=== PATIENT | male | born 1995 | race Caucasian/White ===

== ENCOUNTER 2017-02-13 18:24 | Inpatient (IN) | payer MEDICAID ==
[2017-02-13] MEDS ORDERED: MAGNESIUM HYDROXIDE 2,400 MG/10 ML CUP PO PRN (18:33)
[2017-02-13] MEDS ORDERED: MAG HYDROX/AL HYDROX/SIMETH 30 ML CUP PO PRN (18:33)
[2017-02-13] MEDS ORDERED: LORazepam 0.5 MG TAB PO PRN (19:38)
[2017-02-13] MEDS: NICOTINE 14MG/24HR PATCH TRANSDERM SCH (22:49)
[2017-02-13] MEDS: ACETAMINOPHEN TAB 325 MG TAB PO PRN (23:43)
[2017-02-14] MEDS ORDERED: LORazepam 0.5 MG TAB ONE (02:00)
[2017-02-14] MEDS: ACETAMINOPHEN TAB 325 MG TAB PO PRN (04:46)
[2017-02-14 08:15] VITALS: RESP 16
[2017-02-14] MEDS: NICOTINE 14MG/24HR PATCH TRANSDERM SCH ×2 (09:59→11:55)
[2017-02-14] MEDS ORDERED: HYDROcodone/APAP 5-325MG 1 EACH TAB PO PRN (14:06)
--- NOTE | 2017-02-14 15:18 | HP ---
DATE OF ADMISSION: Patient is known to me as I saw him in consultation liaison. HISTORY OF PRESENT ILLNESS: Patient is 21 -year-old single male who was living with his parents. Patient was brought to the hospital after he overdosed on aspirin and Fioricet and he did cut both of his arms superficially. Patient was petitioned by his mother stating that the patient did attempt suicidal before, as he did cut his wrist and also he overdosed. According also to the petition, patient told her that "God was talking to him and he wants him to be with him." When I talked to the patient today, patient is not as lethargic as before, he stated "when I overdosed and cut myself I was not in the right mind, I was high on mushrooms". Patient was very vague, evasive, kept saying, "I am not insane or crazy and I don't need to be here, and I don't need to be on any psychiatric medication." When I did ask the patient if he has been depressed he said, "I just had been feeling down and sad for the last year since I had my seizure." Patient was very disorganized, talking about unrealistic dream as "One day, I would be famous like any of rapper". He stated that he has been "dealing with stuff". When I did ask him to elaborate more he said, "it does not matter." Patient was very somatic preoccupied, to the point that it seems his delusion thinking, talking about being detached from his body. When I asked him how often he has been using the mushrooms, he said, "this is not drugs. This is God planted for us as a medications". He talked about extensive history of substance abuse, it started last year but he was very vague about his mental illness. He did admit that 18 months ago he attempted suicide and he was in the inpatient in mental unit for 4 weeks, but he said, "They were giving me Abilify that it did make me hallucinate". Despite he denied any auditory or visual hallucination, but patient was responding to internal cues. There was a lot of halting and blocking. He stated that "everything is overwhelming to me since I had my seizure." But despite this statement, he denied feeling hopeless or helpless. He kept saying, "I just need to stop using mushrooms and everything will be okay." Patient seems he has a lot of paranoia and suspicious feeling and idea of reference. He did admit that he has been having trouble sleeping at night. Regarding his past psychiatric history, there is one previous inpatient hospitalization 18 months ago for 4 weeks and he was discharged [facility] but patient did not follow up with outpatient treatment. There are 2 previous suicidal attempts, one he did cut his forearm and overdose 18 months ago and the second one just another overdose 9 months ago. Substance abuse history: According to him, he did try everything over the last year. He used crack cocaine, Adderall, Vicodin pain medication and mushrooms. Marijuana: He stated that he has medical marijuana card for migraine headache for at least 18 months and he has been smoking between 2 and 3 joints a day. MEDICAL HISTORY: 1. Status post overdose. 2. 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 3. History of grand mal seizure since age 16. Patient supposed to be on Depakote, but he stopped 8 months ago. 4. History of migraine headache. 5. History of recent back pain. His home medication he is on: 1. Fioricet for migraine headache. 2. [place] for back pain. SOCIAL HISTORY: Patient was raised by both parents. He has 2 brothers and 2 sisters. He dropped out of school at 11 grade. He has been not able to maintain job more than 6 months. 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 There is no current relationship. He never had been . There is no children. He denied any current legal program. MENTAL STATUS EXAMINATION: Patient came to the office, was wearing hospital gown, alert, oriented to place, and person and time but very guarded and evasive, he appeared to attend to the interview. He has no distinguished features of psychomotor agitation or abnormality. Despite he denied any hallucination, but obvious he is responding to internal cue. He expressed a lot of paranoia and suspicious feeling, mixed delusion, grandiose delusion and ( ) delusion. He stated that he has been feeling sad, but affect is blunted. He denied any current suicidal ideation or homicide ideation. He does minimize what he did prior to the admission, saying, "I wasn't in the right mind because of the mushrooms." His thinking is very concrete with a lot of halting and blocking and his insight and judgment are totally impaired. DIAGNOSES: 1. Bipolar disorder, mixed with psychotic feature. Rule out organic mood disorder bipolar type due to frontal lobe damage. 2. Polysubstance use disorder. 3. Poor compliance with medication. 4. Psychosocial dysfunction due to psychosis. PLAN: The patient has been admitted to the mental health unit on petition and certificate. I will complete clinical certificate. I will start him on Invega if he did agree to take it. Otherwise, we are waiting for the court hearing to order combined inpatient and outpatient treatment and we will changed oral Invega to Invega injection after the court hearing to assure the compliance with treatment. We will request a routine medical consultation. loft worker apprentice will meet with his parents to complete psychosocial assessment and discuss discharge planning. Patient will be monitored on daily basis for safety and will encourage him to participate in group.
[2017-02-14] MEDS: PALIPERIDONE 6 MG TAB.ER.24 PO SCH (20:45)
[2017-02-15] MEDS: NICOTINE 14MG/24HR PATCH TRANSDERM SCH (09:36)
--- NOTE | 2017-02-15 12:13 | CONS ---
DATE OF CONSULTATION: 02/14/2017 REASON FOR CONSULTATION: Medical management of drug overdose with salicylate and acetaminophen. HISTORY OF PRESENT ILLNESS: Mr. Salamanca is a 21-year-old male with a known history of seizure disorder, migraine headaches and history of brain abscess at age of 16 years. He was initially brought to the ER after he voluntarily took ( ) tablets of aspirin and Fioricet pills. The patient threw up 30 to 40 pills according to EMS. Otherwise the patient was found to have elevated acetaminophen level and salicylate level and anion gap metabolic acidosis. The patient was continued on IV fluids. The patient was treated with acetylcysteine as per toxicology recommendations. Patient's salicylate levels came down to less than 10. The patient was also UDS positive for barbiturates and marijuana. The patient was eventually transferred to inpatient psychiatric unit for his depression and suicide attempt. Currently patient denies any complaints of chest pain or shortness of breath. The patient states that he is feeling ( ). Otherwise denied any nausea or vomiting, abdominal pain. No fever. No chills. REVIEW OF SYSTEMS: CONSTITUTIONAL: No fever. No chills. RESPIRATORY: No cough or sputum production. CARDIOVASCULAR: No chest pain or shortness of breath. ABDOMEN: No nausea, vomiting, abdominal pin. GENITOURINARY: Negative. ENDOCRINE: Negative. PSYCHIATRIC: Negative. All other 14 point review of systems negative as above. PAST MEDICAL HISTORY: Seizure disorder, history of brain abscess at age 16 with frontal lobe damage, migraine headaches, history of suicide attempt. PAST SURGICAL HISTORY: Metal plate in arms after skateboard accident. PSYCHOSOCIAL HISTORY: Depression and previous suicide attempt. SOCIAL HISTORY: Started smoking at age 11, light smoker. Dose use marijuana occasionally. FAMILY HISTORY: Father had HIV and renal disease on hemodialysis. Mother had TB and HIV as per patient. Home medications: 1. Adderall. 2. [place]. ALLERGIES: No known drug allergies. PHYSICAL EXAMINATION: A 21-year-old male lying in bed comfortably, alert, oriented x3, appears to be in no apparent distress. VITALS: Blood pressure is 130/70, pulse is 78, respirations 16, temperature afebrile, pulse ox 98% on room air. HEENT: Atraumatic, normocephalic. NECK: Supple. No JVD. CVS exam: S1, S2 heard. No murmurs, no gallop, no rub. LUNGS: Bilateral air entry is present. No crackles. ABDOMEN: Soft, nontender. Bowel sounds are present: PIT INSPECTOR: Awake, alert, oriented x3. No focal deficit. EXTREMITIES: No edema. Pulses palpable bilaterally. No clubbing or cyanosis. PSYCHIATRIC: Cooperative. Denied any suicidal ideation now. Laboratory data reviewed. IMPRESSION: 1. Acute drug overdose with aspirin and Fioricet. 2. Acute suicide attempt. 3. Elevated salicylate and acetaminophen levels, normalized now. 4. Hypokalemia, improved. 5. Metabolic acidosis, resolved. 6. History of depression and suicide attempt. 7. Migraine headaches. 8. Seizure disorder. 9. Poor compliance with medications. 10. Bipolar disorder with mixes psychotic features. DISCUSSION AND PLAN: Patient is otherwise being treated for depression and acute psychosis in the psychiatric unit. Salicylate and acetaminophen levels have normalized. We will continue to monitor the patient. We will follow up liver function. Follow up CBC and BMP. Continue to monitor closely. Continue home medications. Further recommendations based on clinical course. Thank you for the consult.
[2017-02-15] MEDS: PALIPERIDONE 6 MG TAB.ER.24 PO SCH (20:57)
[2017-02-16] MEDS: NICOTINE 14MG/24HR PATCH TRANSDERM SCH (09:24)
--- NOTE | 2017-02-16 12:14 | P.PN ---
Progress Note - Text PROGRESS NOTE FROM session: Interval history: The patient was laying in his bed ,able to follow me for session ,patient is vague ,guarded ,minimizing his serious suicidal attempt and kept saying "I WAS IN DIFFERENT STATE OF MIND BECAUSE OF MUSHROOM " He denies any current suicidal or The patient states he has been off work for back pain and he is not sure if he is still having job as he started current job couple of weeks ago ,insight to his SA problem is very limited ,he has been compliant with medication but he does not believe that he need it saying "I PREFER NATURAL STUFF " Mental status exam: The patient's a thin male he seated calmly he is dressed in hospital gown. Eye contact is fair. He is cooperative. He denies suicidal no homicidal ideation intent or plan. He feels safe here in the hospital. He is endorsing no auditory or visual hallucinations. He endorses suspicious thoughts and he is guarded and non spontaneous ,very concrete thinking. Insight and judgment limited. He demonstrates no verbal or physical aggressiveness. No tremor is noted no abnormal involuntary movements observed. Affect is bland throughout the session. Plan: The patient will be continued on his current psychotropic medications. Waiting for court hearing
--- NOTE | 2017-02-16 13:12 | P.PN ---
Progress Note - Text Interval history: I reviewed records and nursing notes from last evening ,he reports that he had trouble falling asleep last night "I WAS UP TILL 2 AM",he stated that he was socializing with another patient talking about mandaeism and miracle ,also about psychotropic medication and how affecting patients "I DO AGREE WITH HIM NATURAL GROWING PLANT IS BEST MEDICATION" Patient talked about his visit with his parent last evening and "THEY WERE UPSET BECAUSE OF MUSHROOM" PER NURSING STAFF:patient is participating in some groups ,ADLS improving VITALS SIGN: STABLE Mental status exam: The patient is alert , eye contact is intermittent. He is dressed in his clothing He continues to deny auditory hallucinations , ,no idea of reference or thought insertion,he endorses some anxiety related to deferral meeting ,speech is vague ,very concrete thinking with limited insight especially to his SA issue He demonstrates no verbal or physical aggressiveness during our session. Affect remains constricted. He reports no suicidal ideation intent or plan or any homicidal ideation intent or plan. . Plan:Will increase Invega ,will change to long acting after court ,SW to meet with parent to evaluate patient support system
[2017-02-16] MEDS: PALIPERIDONE 3 MG TAB.ER.24 PO SCH (20:06)
[2017-02-17] MEDS: NICOTINE 14MG/24HR PATCH TRANSDERM SCH (08:56)
--- NOTE | 2017-02-17 09:20 | P.PN ---
Progress Note - Text Interval history: I reviewed records and nursing notes ,patient was in dining room and followed me to office ,he reports that his sleeping was better last night ,no racing thought ,no hallucination,denies any suicidal or homicidal ideation ,talked about his deferral meeting and he said "MY PATIENT SERVICE REP TOLD ME IF I AM TAKING ORAL MEDICATION ,I HAVE THE RIGHT TO REFUSE INJECTION",patient is on 90 days treatment,talked about being on Abilify maintana 18 months ago and he claimed that he had lot of side-effect ,discussed with him chemical dependency treatment but he was resistant saying "I KNOW HOW TO STOP AND I CAN DO IT",patient reports restless feeling on higher dose of Invega PER NURSING STAFF:patient is participating in some groups ,ADLS improving VITALS SIGN: STABLE Mental status exam: The patient is alert , eye contact is intermittent. He is dressed in his clothing He continues to deny auditory hallucinations , ,no idea of reference or thought insertion, ,speech is vague ,very concrete thinking ,insight and judgment improving He demonstrates no verbal or physical aggressiveness during our session. Affect remains constricted. He reports no suicidal ideation intent or plan or any homicidal ideation intent or plan. . PLAN: Continue current dose of Invega ,criminal justice social worker to meet with family to discuss post plan discharge
[2017-02-17 13:55] VITALS: BMI 24.7
[2017-02-17] MEDS: PALIPERIDONE 3 MG TAB.ER.24 PO SCH (21:00)
[2017-02-18] MEDS: NICOTINE 14MG/24HR PATCH TRANSDERM SCH (09:00)
[2017-02-18] MEDS ORDERED: PALIPERIDONE IM 234 MG/1.5 ML SYG IM STA (12:19)
--- NOTE | 2017-02-18 14:29 | P.PN ---
Progress Note - Text Interval history: I reviewed records and nursing notes ,patient was in dining room and followed me to office ,he reports that his sleeping was better last night ,no racing thought ,no hallucination,denies any suicidal or homicidal ideation ,denies any current psychotic features ,no side-effects from medication Patient stated that he talked with his mother last night and she told him that he has to be on injection "THAT IS WHY I AM CHANGING MY MIND ,I DO NOT ANY CONFLICT WITH MY PARENT,THEY ARE MY SUPPORT " PER NURSING STAFF:patient is participating in groups ,ADLS improving VITALS SIGN: STABLE Mental status exam: The patient is alert , eye contact is intermittent. He is dressed in his clothing He continues to deny auditory hallucinations , ,no idea of reference or thought insertion, ,speech is vague ,very concrete thinking ,insight and judgment improving He demonstrates no verbal or physical aggressiveness during our session. Affect remains constricted. He reports no suicidal ideation intent or plan or any homicidal ideation intent or plan. . PLAN: Will order Invega injection and continue oral Invega for 2 weeks ,family meeting tomorrow ,encourage groups participation,recommend neuropsychiatric evaluation to assess extend of organic damage due to scarring of frontal lobe
[2017-02-18] MEDS: PALIPERIDONE 3 MG TAB.ER.24 PO SCH (20:23)
[2017-02-19] MEDS: BENZTROPINE MESYLATE 0.5 MG TAB PO SCH ×2 (08:57→20:00)
[2017-02-19] MEDS: NICOTINE 14MG/24HR PATCH TRANSDERM SCH (08:57)
--- NOTE | 2017-02-19 11:03 | DS ---
DATE OF ADMISSION: 02/13/2017 DATE OF DISCHARGE: 02/19/2017 CONSULT PHYSICIAN: Gloria. CONSULTING PROVIDER: Dr. Kimbrough. CONSULT REASON: For medical management. Do you want consulting provider notified? Yes. DIAGNOSES: 1. Organic bipolar disorder. 2. Cannabis use disorder. 3. Hallucinogens. BRIEF SUMMARY OF THE ADMISSION NOTES: The patient was admitted to the mental health unit from the medical floor after being seen in psychiatric consultation. Patient presented to the ER with the petition filled by his mother after the patient took overdose of aspirin and Fioricet and he did cut both arms superficially. Patient was in the intensive care unit and after he was medically cleared, he was transferred to our mental health unit. For complete history and physical examination, please refer to my history and physical exam. HOSPITAL COURSE: Patient was very vague, guarded, minimizing his overdose and he kept saying, "I use mushroom before I took the overdose and I cut myself. I wasn't in the right mind"; however, after I talked with patient's mother she stated that since he did have frontal lobe abscess he has been very impulsive and predictable not able to maintain any job, poor impulse control and he has been noncompliant with psychotropic medication as he was on Abilify from the first admission at [facility]. As the patient was having very limited insight to his condition, I did pursue involuntary admission and another clinical certificate was filed. Patient met with his wagon driver salesperson and he deferred for outpatient treatment for 90 days. Initially he stated that he will take Invega because "I was allergic to Abilify" and He was given Invega 9 mg at bedtime. Patient was resistant to have injection or long acting Invega until he met his mother on February 17 and she told him that she does recommend long-acting injection as she said he was more stable when he was on Abilify Maintena. Patient did agree and he was given the first injection on February 18 Invega Sustenna 234 mg. Patient was complaining of having restless feeling, and I did add Cogentin 0.5 twice a day. I did discuss with the patient and his mother that he needs to follow up with neurologist regarding the history of seizure, despite that he denied having any seizure for the last 8 or 9 months, but prior to this he was supposed to be on Depakote. Initially the couple of days, patient was not attending or participating in any group, but for the last couple of days he has been more visible on the milieu on the unit participating in group therapy, but more often in the activity therapy than the group therapy as he said, "I am very shy and I don't know how to express my feelings". Throughout his hospitalization, patient denied any suicidal or homicide ideation. Patient was less evasive and less guarded with the Invega. The last nursing notes on February 18 stated that the patient is cooperative. He denied any suicidal or homicide ideation. He is able to focus. Alert, oriented to person, place and time. He denied any delusional thinking. Denied any hallucination. He does interact with peers and staff appropriate, at times circumstantial, but easily to redirect. His thinking is concrete. Patient stated that he would pursue outpatient counseling and he was [facility]. MENTAL STATUS EXAMINATION: At the time of the discharge, patient is alert. He ( ) calmly, avoiding eye contact but hygiene and grooming are okay. Speech is not spontaneous, but coherent. Thought process is linear; at times, circumstantial, but easy to redirect. He is reporting no homicidal or suicidal ideation, intent or plan. He does not feel hopeless. There is no evidence of hypomania or zaid. There is no evidence of psychosis. He denied any paranoia, hallucinations, idea of reference. His thinking is concrete due to the damage of his frontal lobe. His insight and judgment improved. There is no verbal or physical aggression observed. PLAN: 1. Patient will be discharged from the mental health unit today to return home with his parents following the family support meeting. 2. I do recommend neuropsychological testing to evaluate the extent of the organic damage and his ability for program solving. 3. Patient was referred to [facility]. 4. Patient to continue on Invega 9 mg for 2 weeks then discontinue. 5. Invega Sustenna injection 234 on March 18, 2017. 6. Patient was instructed to abstain from all drug street especially mushroom and I did discuss the negative impact of the mushroom on his mental status and patient verbalized understanding. 7. There is no eminent safety risk and he is appropriate for transition to outpatient care. Patient does not have any access to firearms. He is instructed to return to the emergency room if any acute safety concern. Patient's condition at the time of the discharge, stable.
--- NOTE | 2017-02-19 12:47 | P.PN ---
Progress Note - Text Interval history: I reviewed records and nursing notes ,discussed his treatment during treatment plan ,I saw patient ,he reports that he was not able to sleep last night because "I THINK INJECTION GAVE LOT OF ENERGY" ,he described restless feeling and pacing,no racing thought ,no hallucination,denies any suicidal or homicidal ideation ,denies any current psychotic features SW notified me that parents were not able to come for family meeting today PER NURSING STAFF:patient is participating in selected groups ,had PRN Ativan last night for anxiety VITALS SIGN: STABLE Mental status exam: The patient is alert , eye contact is intermittent. He is dressed in his clothing He continues to deny auditory hallucinations , ,no idea of reference or thought insertion, ,speech is vague ,very concrete thinking ,insight and judgment improving He demonstrates no verbal or physical aggressiveness during our session. Affect remains constricted. He reports no suicidal ideation intent or plan or any homicidal ideation intent or plan. . PLAN: Add cogentin for akathasia ,add low dose of Trazodone for sleep ,likely discharge after family meeting tomorrow
[2017-02-19] MEDS: PALIPERIDONE 3 MG TAB.ER.24 PO SCH (20:00)
[2017-02-19] MEDS ORDERED: traZODone HCL 50 MG TAB PO SCH (21:00)
[2017-02-20 00:10] VITALS: BP 118/68; PULSE 85; TEMP 98.6
[2017-02-20] MEDS: BENZTROPINE MESYLATE 0.5 MG TAB PO SCH (08:27)
[2017-02-20] MEDS: NICOTINE 14MG/24HR PATCH TRANSDERM SCH (08:27)
[2017-02-20] MEDS ORDERED: traZODone HCL 100 MG TAB PO PRN (09:25)
--- NOTE | 2017-02-21 06:55 | DS ---
DATE OF ADMISSION: 02/13/2017 DATE OF DISCHARGE: 02/20/2017 ADDENDUM: Patient was supposed to return back home and be discharged from the mental health unit on February 19 after family meeting with his parents. However, his parents called on February 19 and stated that they will not be able to keep the appointment for family meeting as his father had to go to the emergency room for an acute gastritis. Meeting was postponed to February 20 and patient does feel comfortable to be discharged with his family. He is aware that he is on court order for outpatient treatment for 90 days. Patient denied any suicidal or homicide ideation. Denied any psychotic feature. He was complaining of having some restless feeling from the Invega so I did add Cogentin 0.5 twice a day. According to him he did not sleep for the last couple of nights as his roommate was snoring so I discussed with him that most probably his sleep would be normal when he will be discharged. However, he was given trazodone 100 mg to take only as needed for insomnia. Patient condition at the time of the discharge is stable.
== END 2017-02-20 13:33 | disposition home or self-care (01) | DRG 885 ==
LOC: 3MHU 18:39
PROVIDERS: ADMIT Psychiatry & Neurology Psychiatry; ATTEND Psychiatry & Neurology Psychiatry
DX: F31.9 Bipolar disorder, unspecified (principal); G40.409 Other generalized epilepsy and epileptic syndromes, not intractable, without status epilepticus; F22 Delusional disorders; E87.6 Hypokalemia; F12.90 Cannabis use, unspecified, uncomplicated; F16.90 Hallucinogen use, unspecified, uncomplicated; F17.200 Nicotine dependence, unspecified, uncomplicated; G43.909 Migraine, unspecified, not intractable, without status migrainosus; Z83.0 Family history of human immunodeficiency virus [HIV] disease; Z86.61 Personal history of infections of the central nervous system; Z91.14 Patient's other noncompliance with medication regimen; Z91.5 Personal history of self-harm; M54.9 Dorsalgia, unspecified
CPT/HCPCS: 84443

== ENCOUNTER 2018-06-21 11:44 | Emergency (ER) | payer OTHER ==
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
[2018-06-21 14:03] LABS: Basophils % (A) 0 %; Eosinophils # (A) 0.1 k/uL (0-0.7); Eosinophils % (A) 1 %; HGB 15.4 gm/dL (13.0-17.5); Lymphocytes % (A) 20 %; MCH 31.9 pg (25.0-35.0); MCHC 34.2 g/dL (31.0-37.0); MCV 93.2 fL (80.0-100.0); Monocytes # (A) 0.5 k/uL (0-1.0); Monocytes % (A) 5 %; Neutrophils # (A) 7.4 k/uL (1.3-7.7); Neutrophils % (A) 73 %; Platelet Count 256 k/uL (150-450); RBC 4.83 m/uL (4.30-5.90); RDW 11.8 % (11.5-15.5); WBC 10.2 k/uL (3.8-10.6)
[2018-06-21 14:13] LABS: ALT 60 U/L (21-72); AST 26 U/L (17-59); Albumin 4.5 g/dL (3.5-5.0); Alcohol <10 mg/dL; Alkaline Phosphatase 59 U/L (38-126); Anion Gap 8 mmol/L; Blood Urea Nitrogen 10 mg/dL (9-20); Calcium 9.6 mg/dL (8.4-10.2); Carbon Dioxide 27 mmol/L (22-30); Chloride 105 mmol/L (98-107); Glucose 103 mg/dL (74-99); Potassium 3.8 mmol/L (3.5-5.1); Sodium 140 mmol/L (137-145); Total Bilirubin 0.5 mg/dL (0.2-1.3); Total Protein 6.8 g/dL (6.3-8.2)
[2018-06-21] MEDS ORDERED: LORazepam 2 MG/ML INJ IM STA (17:36)
[2018-06-21 19:18] LABS: Appearance,Urine Clear (Clear); Bilirubin,Urine Negative (Negative); Blood,Urine Negative (Negative); Color,Urine Light Yellow; Glucose,Urine (UA) Negative (Negative); Ketones,Urine Negative (Negative); Leukocyte Esterase,Urine Negative (Negative); Nitrite,Urine Negative (Negative); Protein,Urine Negative (Negative); Specific Gravity,Urine 1.012 (1.001-1.035); Urobilinogen,Urine <2.0 mg/dL (<2.0)
[2018-06-21] MEDS ORDERED: ACETAMINOPHEN TAB 325 MG TAB PO STA (19:25)
[2018-06-21 19:39] LABS: Amphetamine Screen,Urine Not Detected (NotDetected); Barbiturate Screen,Urine Not Detected (NotDetected); Benzodiazepines Screen,Urine Detected (NotDetected); Cocaine Screen,Urine Not Detected (NotDetected); Methadone Screen, Urine Not Detected (NotDetected); Opiate Screen,Urine Not Detected (NotDetected); Oxycodone Screen, Urine Not Detected (NotDetected); Phencyclidine Screen,Urine Not Detected (NotDetected); Tricyclic Antidepressant,Urine Not Detected (NotDetected); Urn Cannabinoid Scrn Not Detected (NotDetected)
[2018-06-21] MEDS ORDERED: IBUPROFEN 600 MG TAB PO STA (22:08)
--- NOTE | 2018-06-22 14:49 | CT ---
EXAMINATION TYPE: CT brain wo con DATE OF EXAM: 06/22/2018 COMPARISON: 02/12/2017 INDICATION: Possible medication reaction DLP: 999.8 mGycm, Automated exposure control for dose reduction was used. CONTRAST: None CT of the brain is performed utilizing 3 mm thick sections through the posterior fossa and 3 mm thick sections through the remaining calvarium. Study is performed within 24 hours of arrival to the hosp [facility]. No abnormal hyperdensity is present to suggest an acute intracranial hemorrhage. No mass lesion is evident. No acute infarcts are evident. Ventricles and sulci are appropriate for the patient age. Paranasal sinuses and mastoid air cells within the [id number] are clear. IMPRESSIONS: 1. Normal CT Brain
[2018-06-22] MEDS ORDERED: LORazepam 2 MG/ML INJ IM STA (16:26)
[2018-06-22 16:44] VITALS: BP 125/74; PULSE 93; RESP 18; TEMP 98
== END 2018-06-22 17:44 | disposition home or self-care (01) ==
LOC: EC 11:44
DX: F29 Unspecified psychosis not due to a substance or known physiological condition (principal); R41.82 Altered mental status, unspecified; F17.200 Nicotine dependence, unspecified, uncomplicated; Z79.899 Other long term (current) drug therapy
CPT/HCPCS: 36415; 80053; 85025; 81003; 80306; 80320; 70450; 99284; 96372 ×2; J2060 ×2